=== PATIENT | female | born 1950 | race Caucasian/White ===

== ENCOUNTER → 2017-05-16 | Outpatient (CLI) | payer OTHER ==
[~2017-05-16] MED LIST: OPTIRAY 320 IV PRN
--- NOTE | 2017-05-16 13:02 | DIAGNOSTIC IMAGING REPORT ---
ABD/PELVIS IV AND ORAL CONT CT DOSE: 360.93 mGy.cm HISTORY: Abnormal endoscopy ABNORMAL FINDINGS ON GI TRACT IMAGING TECHNIQUE: Multiaxial CT images of the abdomen and pelvis were performed following the use of intravenous and oral contrast. A dose lowering technique was utilized adhering to the principles of ALARA. COMPARISON STUDY: None. FINDINGS: Lung bases are clear. Liver spleen and pancreas are uniform. Kidneys enhance uniformly. No evidence for hydronephrosis. Scattered colonic diverticuli. The cecum appears unremarkable. 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 No significant submucosal lesion is appreciated. The appendix is normal Bladder is midline. The colonic pattern is nonobstructive. There are scattered colonic diverticuli. There is no evidence for acute diverticulitis. IMPRESSION: 1. Scattered colonic diverticuli with no evidence for diverticulitis. 2. 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 3. Otherwise negative study. The above report was generated using voice recognition software. It may contain grammatical, syntax or spelling errors. Electronically signed by: Jamil Coronado M.D. 05/16/2017 1:01 PM Dictated Date/Time: 05/16/2017 12:55 PM
== END | disposition home or self-care (01) ==
LOC: C.CTS 10:26
PROVIDERS: ATTEND Internal Medicine Gastroenterology
DX: R93.3 Abnormal findings on diagnostic imaging of other parts of digestive tract (principal)